=== PATIENT | female | born 1945 | race Caucasian/White ===

== ENCOUNTER 2020-06-21 06:43 | Observation (INO) ==
--- NOTE | 2020-05-21 16:23 | PAT Medication Instructions ---
Medication Instructions Date of Service May 21, 2020 Home Medications aspirin 81 mg tablet,delayed release 81 mg PO QAM atorvastatin 10 mg tablet 10 mg PO QAM carvedilol 3.125 mg tablet 3.125 mg PO BID furosemide 20 mg tablet 20 mg PO QAM meloxicam 7.5 mg PO QAM ASK your surgeon for instructions meloxicam 7.5 mg PO QAM DO NOT take the morning of surgery furosemide 20 mg tablet 20 mg PO QAM Take morning of surgery With a small sip of water, OTHERWISE NOTHING TO EAT OR DRINK AFTER MIDNIGHT: aspirin 81 mg tablet,delayed release 81 mg PO QAM atorvastatin 10 mg tablet 10 mg PO QAM carvedilol 3.125 mg tablet 3.125 mg PO BID Take evening before surgery carvedilol 3.125 mg tablet 3.125 mg PO BID Other Notes If you have any questions please call us at [phone] or [phone] or [phone] or [phone]
--- NOTE | 2020-05-26 12:47 | Anesthesiology Consultation ---
Date of Service May 26, 2020 Assessment & Plan (1) Encounter for pre-operative examination: - Per assessment on 05/26: Travel screen negative. No known COVID-19 positive contacts or current COVID-19 related symptoms. Surgeon arranging preop COVID testing. Awaiting results. - Cardiology note (02/04/20): "The patient is stable from a cardiac perspective to proceed with knee replacement without further cardiac testing, with an estimated low risk of perioperative cardiac complication" Chart Review Chart Review: Acceptable Risk for Surgery and Patient seen in Pre Admission Testing Teaching & Discussion Pre-Anesthesia Teaching/Discussion Notes: Instructed NPO after midnight before surgery,except medications with 15 cc of water. Medication instructions provided according to the PAT guidelines. History Surgery Operation Date: 06/21/20 09:00 Proposed Procedures p Right Total Knee Arthroplasty - Maury Price DO Height/Weight Height: 5 ft 5 in Weight: 92.8 kg Allergies Allergy/AdvReac Type Severity Reaction Status Date / Time meloxicam AdvReac Bruising Verified 05/26/20 13:03 MORPHINE AdvReac Unknown Nausea Uncoded 05/26/20 13:02 Medications Home Medications Medication Instructions Recorded Confirmed Last Taken aspirin 81 mg tablet,delayed 81 mg PO QAM 02/19/19 05/19/20 04/03/19 release atorvastatin 10 mg tablet 10 mg PO QAM 02/19/19 05/19/20 04/03/19 carvedilol 3.125 mg tablet 3.125 mg PO BID 02/19/19 05/19/20 04/03/19 furosemide 20 mg tablet 20 mg PO QAM 02/19/19 05/19/20 04/03/19 meloxicam 7.5 mg PO QAM 05/19/20 05/19/20 Unknown Past Medical History Medical History Anemia chronic, baseline hgb 11 range per [facility] records review Anxiety History of CHF (congestive heart failure) chronic diastolic HF, follows with Dr. Flores HTN (hypertension) Hyperlipemia Obesity Osteoarthritis Prolapsed uterus Takotsubo cardiomyopathy remote hx 2013 Exercise / Class Metabolic Activity III < 4 Walking/Shop/Light housework Past Family History Family History Son Other No family history of adverse response to anesthesia Past Surgical History Surgical History History of cardiac catheterization 2013 ([place]) - no stents History of left hip replacement History of right hip replacement History of umbilical hernia repair Past Anesthesia History No Hx of Anesthesia Complications and No Family Hx of Anesthesia Complications History of PONV No Hx of PONV and No Hx of Motion Sickness Social History Smoking Status: Never smoker Do You Dip or Chew Tobacco: No Hx Alcohol Use: No Hx Substance Use: No substance use type: does not use Review of Systems Patient denies chest pain, shortness of breath, dyspnea on exertion, joint pain, reflux, cough, wheezing, palpitations. Physical Exam Vital Signs VITALS BP 142/79 P 65 TEMP 97.9 SP02 96%RA RESP 16 PHYSICAL Full neck and c-spine range of motion. Full TMJ range of motion. TMD 3 finger breaths Mallampati Score 2 Dentition: upper full denture Lungs: clear throughout to auscultation Cardiac: regular rate and rhythm, no murmurs noted Spine: normal Carotid arteries: negative bruit Extremities: non-pitting edema Testing Laboratory Results 05/26/20 13:11 05/26/20 13:11 PT 10.3 Seconds (9.0-12.0) 05/26/20 13:11 INR 1.0 (0.9-1.1) 05/26/20 13:11 APTT 24.0 Seconds (21.0-31.0) 05/26/20 13:11 Hemoglobin A1c 5.8 % (4.5-5.6) H 05/26/20 13:11 Urine Color Yellow 05/26/20 Unknown Urine Appearance Cloudy (Clear) A 05/26/20 Unknown Urine pH 5.0 (4.5-7.5) 05/26/20 Unknown Ur Specific [place] 1.016 (1.000-1.030) 05/26/20 Unknown Urine Protein Negative (Negative) 05/26/20 Unknown Urine Glucose (UA) Negative (Negative) 05/26/20 Unknown Urine Ketones Negative (Negative) 05/26/20 Unknown Urine Nitrite Negative (Negative) 05/26/20 Unknown Ur Leukocyte Esterase 2+ (Negative) H 05/26/20 Unknown Blood Type A Positive 05/26/20 13:11 Antibody Screen NEGATIVE 05/26/20 13:11 Electrocardiogram Date: 01/13/20 NSR at 60bpm. NS TWA. Chest X-Ray Date: 05/26/20 FINDINGS: Cardiac silhouette remains mildly enlarged. No pleural effusions. No pneumothorax. A few linear scarlike density seen within the left lung apex and lung bases. Otherwise, no focal lung consolidations to suggest pneumonia. No ev idence for pulmonary edema. IMPRESSION: Stable mild cardiomegaly. Otherwise, no acute process within the chest. Echocardiogram Date: 01/22/20 EF 55 to 59%. No regional wall motion abnormality. Grade 1 diastolic dysfunction. No significant valvular disease. Cardiac Catheterization Date: 08/02/12 The patient has widely patent and normal coronary anatomy.
[2020-05-26 13:34] LABS: Basophils # (auto) 0.02 K/uL (0-0.2); Basophils % (auto) 0.3 %; Eosinophils # (auto) 0.11 K/uL (0-0.5); Eosinophils % (auto) 1.8 %; Hematocrit (blood only) 34.5 % (37-47); Hemoglobin 11.1 g/dL (12.0-16.0); Immature Granulocytes # (auto) 0.01 K/uL (0.00-0.02); Immature Granulocytes % (auto) 0.2 %; Lymphocytes % (auto) 29.5 %; Mean Corpuscular Hemoglobin 25.9 pg (25-34); Mean Corpuscular Hgb Conc 32.2 g/dL (32-36); Mean Corpuscular Volume 80.6 fL (80-100); Mean Platelet Volume 8.8 fL (7.4-10.4); Monocytes % (auto) 6.6 %; Neutrophils # (auto) 3.76 K/uL (1.4-6.5); Neutrophils % (auto) 61.6 %; Platelet Count 270 K/uL (130-400); RDW Coefficient of Variation 14.4 % (11.5-14.5); RDW Standard Deviation 41.8 fL (36.4-46.3); Red Blood Count 4.28 M/uL (4.2-5.4)
--- NOTE | 2020-05-26 13:50 | XRay Report ---
XR chest Pre-admission PA/Lat HISTORY: Preop. COMPARISON: Chest 06/17/2012. FINDINGS: Cardiac silhouette remains mildly enlarged. No pleural effusions. No pneumothorax. A few li near scarlike density seen within the left lung apex and lung bases. Otherwise, no focal lung consoli dations to suggest pneumonia. No evidence for pulmonary edema. IMPRESSION: Stable mild cardiomegaly. Otherwise, no acute process within the chest. ACT 112: Negative or not required by law. Electronically signed by: Trip Tafoya M.D. 05/26/2020 1:49 PM
[2020-05-26 13:55] LABS: Partial Thromboplastin Ratio 0.9; Prothrombin Time 10.3 Seconds (9.0-12.0)
[2020-05-26 13:58] LABS: Albumin Level 3.5 gm/dl (3.4-5.0); BUN Creatinine Ratio 27.6 (10-20); Calcium 9.2 mg/dl (8.5-10.1); Est GFR (African American) 100.6; Est GFR (Non-African American) 86.8; Potassium 3.5 mmol/L (3.5-5.1)
[2020-05-26 14:13] LABS: Estimated Average Glucose 120 mg/dl; Hemoglobin A1C 5.8 % (4.5-5.6)
[2020-05-26 14:59] LABS: Appearance Urine Cloudy (Clear); Bilirubin Urine Negative (Negative); Blood Urine Negative (Negative); Color Urine Yellow; Glucose Urine UA Negative (Negative); Ketones Urine Negative (Negative); Leukocyte Esterase Urine 2+ (Negative); Nitrite Urine Negative (Negative); Protein Urine Negative (Negative); Specific Gravity Urine 1.016 (1.000-1.030); Urobilinogen Urine Negative (Negative)
[2020-05-26 15:14] LABS: Epithelial Cell Urine >30 /lpf (0-5); RBC Urine 0-4 /hpf (0-4)
[2020-05-26 15:23] LABS: Bacteria Urine 1+ (Negative)
--- NOTE | 2020-06-20 09:07 | History & Physical Report ---
Date of Service June 21, 2020 Assessment & Plan (1) Degenerative joint disease of knee, right: I have indicated the patient for right total knee replacement. The risks, benefits and complications of surgery were explained to the patient which include but not limited to infection, acute blood loss, DVT/PE, injury to nerves, vessels, bone, soft tissue, arthrofibrosis, chronic pain, failure of the prosthesis, knee dislocation, leg length discrepancy, need for additional surgery, cardiac and pulmonary events and . The patient wished to proceed with surgery and informed consent was obtained at this time. We will plan for 81mg ASA BID post-operatively for DVT prophylaxis. Upon discharge the patient will be discharged home with home health services. Appropriate clearances by PCP and cardiology were obtained. History of Present Illness Chief Complaint: Right knee pain/DJD Primary Care Provider: Jameson Mike MD The patient is a 75 year old female who presents with complaints of severe right knee pain and DJD. The patient has failed outpatient conservative treatments to this point which included NSAIDs, IA corticosteroid injection and a home exercise/walking program. The patient's pain and limited function have progressed to the point where they severely hinder their activities of daily living and they no longer tolerate exercise programs. They are requesting to proceed with total knee replacement surgery. Allergies Allergy/AdvReac Type Severity Reaction Status Date / Time meloxicam AdvReac Intermediate Bruising Verified 06/21/20 07:17 morphine AdvReac Nausea Verified 06/21/20 08:52 Home Medications Medication Instructions Recorded Confirmed Type aspirin 81 mg tablet,delayed 81 mg PO QAM 02/19/19 06/21/20 History release atorvastatin 10 mg tablet 10 mg PO QAM 02/19/19 06/21/20 History carvedilol 3.125 mg tablet 3.125 mg PO BID 02/19/19 06/21/20 History furosemide 20 mg tablet 20 mg PO QAM 02/19/19 06/21/20 History meloxicam 7.5 mg PO QAM 05/19/20 06/21/20 History Past Med/Surg History Medical History Anemia chronic, baseline hgb 11 range per [facility] records review Anxiety History of CHF (congestive heart failure) chronic diastolic HF, follows with Dr. Flores HTN (hypertension) Hyperlipemia Obesity Osteoarthritis Prolapsed uterus Takotsubo cardiomyopathy remote hx 2014 Surgical History History of cardiac catheterization 2012 ([place]) - no stents History of left hip replacement History of right hip replacement History of umbilical hernia repair Family History Son Other No family history of adverse response to anesthesia Social History Smoking Status: Never smoker Second Hand Exposure: No; Do You Dip or Chew Tobacco: No; Hx Alcohol Use: No Hx Substance Use: No Preferred Language: Lithuanian Communication Ability: Effective Cattle Killer Required: No Beliefs That Will Affect Care: None Current Living Situation: Spouse Feels Safe at Home: Yes Safety Concerns: Feels Safe At This Time Assistive Devices: Cane, Denture - Upper and Glasses Review of Systems Review of Systems: All systems reviewed & are unremarkable except as noted in HPI & below Constitutional: as per Subjective / HPI Physical Exam Physical Exam: RLE NVSI +EHL/FHL/TA/GS SILT grossly, +2 DP pulse, compartments soft NT, limited painful ROM of the knee, 5-120 degrees of flexion. Constitutional: WD/WN, vitals as above Eyes: PERRL, conjunctivae normal, anicteric sclerae ENMT: external ear and nose normal, oropharynx normal Neck: trachea midline, no thyromegaly Respiratory: normal respiratory effort, lungs clear to auscultation Cardiovascular: RRR, no murmur, no edema Gastrointestinal (Abdomen): normal bowel sounds, soft, nontender, no hepatosplenomegaly Musculoskeletal: no cyanosis or clubbing, extremities motor strength 5/5 Skin: no rashes, warm and dry Neurologic: patellar DTR's 2+ bilat, sensation intact Psychiatric: A+Ox3, euthymic affect Lymphatic: no cervical or axillary lymphadenopathy Results & Data Results & Data ([facility]) Diagnostic Findings Multiple views of the knee demonstrates severe tricompartmental DJD with complete loss of the medial and PF joint space. +osteophytes, +sclerosis, +subchondral cysts. Pre Admission Testing Addendum Laboratory Results 05/26/20 13:11 05/26/20 13:11 PT 10.3 Seconds (9.0-12.0) 05/26/20 13:11 INR 1.0 (0.9-1.1) 05/26/20 13:11 APTT 24.0 Seconds (21.0-31.0) 05/26/20 13:11 Hemoglobin A1c 5.8 % (4.5-5.6) H 05/26/20 13:11 Urine Color Yellow 05/26/20 Unknown Urine Appearance Cloudy (Clear) A 05/26/20 Unknown Urine pH 5.0 (4.5-7.5) 05/26/20 Unknown Ur Specific [place] 1.016 (1.000-1.030) 05/26/20 Unknown Urine Protein Negative (Negative) 05/26/20 Unknown Urine Glucose (UA) Negative (Negative) 05/26/20 Unknown Urine Ketones Negative (Negative) 05/26/20 Unknown Urine Nitrite Negative (Negative) 05/26/20 Unknown Ur Leukocyte Esterase 2+ (Negative) H 05/26/20 Unknown Urine RBC 0-4 /hpf (0-4) 05/26/20 Unknown Urine WBC 10-30 /hpf (0-5) H 05/26/20 Unknown Ur Epithelial Cells >30 /lpf (0-5) H 05/26/20 Unknown Blood Type A Positive 05/26/20 13:11 Antibody Screen NEGATIVE 05/26/20 13:11 05/26/20 Unknown Urine Culture - Final Urine,Clean Catch More than three types of organisms present, all moderate counts mixed probable skin minh. No further identifications or sensitivities to follow.
[~2020-06-21 06:43] MED LIST: ACETAMINOPHEN 500 MG TAB PO SCH; CeleBREX 200 MG CAP PO SCH; FAMOTIDINE 20 MG TAB PO SCH; GABAPENTIN 300 MG CAP PO SCH; LR 500ML BOLUS, THEN 15ML/HR IV SCH; METOCLOPRAMIDE HCL 10 MG TABLET PO SCH; ROPIVACAINE 0.5% HCL/PF 150 MG, BUPIVACAINE 0.75% MPF 20 ML, EPINEPHrine 30MG/30ML (OR ... INSTIL SCH; TRANEXAMIC ACID 1,000 MG **IV Intra-op IV SCH; TRANEXAMIC ACID 1,000 MG **IV Pre-op IV SCH; ceFAZolin 2000MG 2,000 MG/15 ML SYR IV SCH; dexAMETHasone 4 MG TAB PO SCH
[2020-06-21] MEDS ORDERED: BUPIVACAINE 0.25% 30 ML VIAL ONE (07:34)
[2020-06-21] MEDS ORDERED: BUPIVACAINE 0.5 % 5 MG/1 ML PF 10ML VIAL ONE (07:35)
[2020-06-21] MEDS ORDERED: MIDAZOLAM HCL 1 MG/ML 2ML VIAL ONE (07:57)
[2020-06-21] MEDS ORDERED: PROPOFOL IV EMULSION 10 MG/ML 20 ML VIAL IV ONE ×2 (07:57→10:08)
[2020-06-21] MEDS ORDERED: ONDANSETRON INJ 2 MG/ML 2 ML VIAL IV PRN ×2 (08:48→13:10)
[2020-06-21] MEDS ORDERED: ATROPINE SULFATE 0.1 MG/ML 10ML SYR IV PRN (08:48)
[2020-06-21] MEDS ORDERED: ePHEDrine sulfate 50 MG/ML AMP IV PRN (08:48)
[2020-06-21] MEDS ORDERED: fentaNYL citrate 100 MCG/2 ML VIAL IV PRN (08:48)
--- NOTE | 2020-06-21 09:16 | History & Physical Bridge Note ---
Date of Service June 21, 2020 History & Physical Bridge Note I have examined the patient, reviewed the History & Physical and in the interval since the performance of the History & Physical I have noted the following changes of clinical significance: no changes noted
[2020-06-21] MEDS ORDERED: ORTHO JOINT ANESTHETIC ONE (09:30)
[2020-06-21] MEDS ORDERED: BACITRACIN INJ 50,000 UNIT VIAL ONE (09:30)
--- NOTE | 2020-06-21 11:16 | Post Operative Brief Note ---
Immediate Post Op Note v1 Date of Surgery June 21, 2020 Pre & Post Diagnosis Operation Date: 06/21/20 09:20 Pre-Op Diagnosis: Right Knee Degenerative Joint Disease Post-Op Diagnosis: Right Knee Degenerative Joint Disease I identified the patient and participated in the time-out.: Yes Procedure Operation Date: 06/21/20 09:20 Actual Procedures p Right Total Knee Arthroplasty(Right) - Maury Price DO Surgeon Maury Price DO Disc Jockey Tunde Romero Estimated Blood Loss 85 Findings Consistent with Post-Op Diagnosis Fluids See anesthesia report Specimens Proximal tibia and distal femur bone fragment Anesthesia Type Spinal MAC Complications none Overlapping Procedure I was present for: the critical portions of procedure. I was immediately available: during the entire case. Back up surgeon: was not required during procedure.
--- NOTE | 2020-06-21 11:18 | Operative Report ---
Post Operative Report Pre & Post Diagnosis Operation Date: 06/21/20 09:20 Pre-Op Diagnosis: Right Knee Degenerative Joint Disease Post-Op Diagnosis: Right Knee Degenerative Joint Disease I identified the patient and participated in the time-out.: Yes Procedure Operation Date: 06/21/20 09:20 Actual Procedures p Right Total Knee Arthroplasty(Right) - Maury Price DO Surgeon Maury Price, Res Counselor Tunde Romero Estimated Blood Loss 85 Findings Consistent with Post-Op Diagnosis Fluids See anesthesia report Specimens Proximal tibia and distal femur bone fragments Anesthesia Type Spinal MAC Complications none Disposition Disposition: Recovery Room Indications The patient is a 72-year-old female presents with long history of severe right knee tricompartmental DJD and failed outpatient conservative treatments including NSAIDs, bracing, injections and home walking/exercise program. The patient's symptoms have progressed to the point where it has been difficult to perform normal activities of daily living. I have indicated the patient for a right total knee arthroplasty, the risks and benefits and complications of the procedure include but are not limited to infection bleeding damage to bone, nerves, vessels, surrounding soft tissue, blood clots, loss of function, leg length discrepancy, dislocation, failure of the components, need for additional surgery and . The patient wished to proceed with surgery at this time and informed consent was obtained. Appropriate clearances were obtained. Description of Procedure COMPONENTS USED: Pedrito persona knee system: Femur size 7 standard, Tibia size E with 30 mm stem extension, Tibial articulating surface 10 CPS, Patella 32 mm Following induction of spinal anesthesia, a tourniquet was applied to the proximal aspect of the thigh and the patient's right leg was prepped and draped in the usual sterile manner. A timeout was performed, patient identified and site carroll confirmed. Appropriate pre-operative IV antibiotics were given. The limb was exsanguinated with an Esmarch bandage and tourniquet was inflated to 300 mmHg. A longitudinal midline incision was made over the anterior knee. Subcutaneous tissue was sharply dissected down to fascia. Electrocautery was used for hemostasis. Next a parapatellar arthrotomy was performed. Patella was everted and the knee was flexed. A Harvey retractor was used to expose the synovium above on the anterior aspect of the femur and removed down to bone. Next, the anterior fat pad was removed to aid in visualization. The medial face of the tibia was cleared of soft tissue first with a Bovie and a workman elevator. This tissue was retracted posteriorly using a blunt Hohmann. Next, the extra-medullary tibial cutting guide was placed to the anterior aspect of the tibia. The tibia resection level was set taking 2mm from the defective tibial condyle. Resection depth was once again confirmed with gonzález wing. The medial and lateral collateral ligament was protected with two Hohmann retractors. The tibia guide was removed and proximal tibial bone fragment removed utilizing straight osteotome, electrocautery and Rafael. Next, the distal femur intramedullary canal was accessed utilizing the step drill. The intramedullary distal femur cutting guide was placed into the canal and pinned into place. The distal femur was cut on the 5 degree setting. Next the cutting guide was removed and the femur was sized. Care was taken to ensure appropriate marketing development manager all rotation and 3 degree holes were drilled. A size 7 4-in-1 cutting block was placed on the distal end of the femur and secured into place with two short headed screws. Two bent Hohmann retractors were alana loyd to protect the medial and lateral collateral ligaments. The oscillating saw was used to cut anterior, posterior, anterior chamfer and posterior chamfer. The four and one cutting block was removed and bone fragments excised. Laminar waste collector was placed laterally and the ACL and PCL were removed followed by the medial meniscus and posterior medial osteophytes. Aquamantys was utilized for any posterior medial bleeders and Orthomix injected into the posterior medial capsule. A laminar waste collector was then placed in the medial compartment and the lateral meniscus and posterior osteophytes were removed. Aquamantys was utilized for any posterior lateral bleeders and Orthomix injected into the posterior lateral capsule. Next, drop leo and spacer block were placed with the leg in flexion and extension to assess alignment and flexion/extension gaps. Next, the proximal tibia was assessed and two bent Hohmans were placed medial and lateral to aid in visualization. The appropriate tibia size and rotation was selected and a size E tibial plate was pinned into place with appropriate rotation. Preparation of the tibia was completed utilizing the matching tibial drill and broach. I then turned my attention back to the distal femur in a trial femoral component was impacted into place. Appropriate femoral width was assessed and selected. Next the femur PS box cut guide was placed and cut made with the reciprocal saw and the PS box provisional placed. A trial size 10 PS tibia articular tray was placed and varus-valgus balance assessed in 0 degrees of extension and 30, 60 and 90 degrees of flexion. A final tibial articular surface size 10 CPS was chosen. Assess was gained to the patella and caliper utilized to measure width. The patella reamer was utilized and remaining bone removed with oscillating saw. A size 32 mm patella button was selected and the patella pegs drilled. Trial patella button was placed and tracking was assessed. The knee was found to be well balanced, well aligned with excellent patella tracking. The trials were removed and final components were obtained and assembled. The knee was irrigated copiously with sterile saline solution mixed with bacitracin. Access to the proximal tibia was once again obtained utilizing to the Hohmans and the proximal tibia and distal femur were dried with lap sponges. The final components were cemented into place and all excess cement was removed. A trial tibial articular surface was placed while cemented hardened. Knee stability was once again assessed and the final component inserted. A Betadine soak was performed. After 3 minutes, the knee was once more irrigated with copious sterile saline solution with bacitracin. The knee was injected with the remaining Orthomix which includes a combination of Ropivicaine 0.5% 150mg, Bupivicaine 0.5%/Epinephrine 1:200,000 30ml, Toradol 30mg, Dexamethasone 4mg, Ketamine 10mg, Clonidine 100mcg and NSS 30ml solution. The capsulotomy was cl osed with #1 Vicryl followed by subcutaneous closure with 2-0 Vicryl suture and skin was closed with kamla. A sterile dry dressing was applied which included Silverlon, web roll and Edilberto wrap. Tourniquet was deflated at 86 minutes. The patient tolerated the procedure well and was taken to the PACU in stable condition. Due to the complex nature of the procedure, the entire surgery was performed with the operational assistance of Tunde Romero PA-C. The bacteriology research assistant, under direct supervision, was involved in the actual performance of all aspects of the surgical procedure including patient positioning, hemostasis, tissue retraction, instrument management and wound closure. I attest to the content of the Intraoperative Record and any orders documented therein. Any exceptions are noted below.
--- NOTE | 2020-06-21 12:16 | XRay Report ---
XR knee RT 1 or 2V routine HISTORY: 75 years-old Female Surgical Post Op right knee total joint arthroplasty COMPARISON: Right knee radiograph 04/03/2019 TECHNIQUE: 2 views of the right knee FINDINGS: Right knee total joint arthroplasty with patellar resurfacing. Anterior midline skin kamla are note d along with expected postsurgical soft tissue swelling and deep tissue air. No expected opaque forei gn body or acute fracture. No malalignment. IMPRESSION: Right knee total joint arthroplasty with expected postoperative changes. ACT 112: Negative or not required by law. The above report was generated using voice recognition software. It may contain grammatical, syntax o r spelling errors. Electronically signed by: Francisco Thompson M.D. 06/21/2020 12:15 PM
[2020-06-21] MEDS ORDERED: oxyCODONE HCL IR 5 MG TAB (IMMEDIATE RELEASE) PO PRN (13:10)
[2020-06-21] MEDS ORDERED: bisacodyL 10 MG SUPP PR PRN (13:10)
[2020-06-21] MEDS ORDERED: diphenhydrAMINE Capsule 25 MG CAP PO PRN (13:10)
[2020-06-21] MEDS ORDERED: METOCLOPRAMIDE HCL INJ 5 MG/ML 2 ML VIAL IV PRN (13:10)
[2020-06-21] MEDS ORDERED: MAGNESIUM HYDROXIDE SUSP 30 ML UDC PO PRN (13:10)
[2020-06-21] MEDS ORDERED: NALOXONE HCL 0.4 MG/1 ML VIAL/CARP IV PRN (13:10)
[2020-06-21] MEDS ORDERED: HYDROmorphone INJ 0.5 MG/0.5 ML SYR IV PRN (13:10)
[2020-06-21] MEDS: SODIUM CHLORIDE 0.9% 1000ML 1,000 ML IV SCH ×2 (13:45→23:51)
[2020-06-21] MEDS: ACETAMINOPHEN 500 MG TAB PO SCH ×2 (13:48→22:19)
--- NOTE | 2020-06-21 14:34 | Anesthesiology Progress Note ---
Date of Service June 21, 2020 Anesthesia Post Procedure Vital Signs Vital Signs: Temp Pulse Pulse Resp BP BP Pulse Ox 06/21/20 14:07 36.3 C L 60 16 136/84 95 06/21/20 13:25 36.5 C 57 L 16 116/68 97 06/21/20 12:45 56 L 16 114/66 95 06/21/20 12:35 57 L 16 129/66 95 06/21/20 12:25 36.4 C L 56 L 16 119/60 96 06/21/20 12:15 36.4 C L 68 18 132/52 L 94 06/21/20 12:05 65 18 125/69 95 06/21/20 11:55 72 15 111/70 95 06/21/20 11:45 36.4 C L 83 16 120/67 94 06/21/20 07:28 36.7 C 79 20 177/68 H 98 Pain Intensity Right Knee: Pain Intensity: 7 Transfer of Care Handoff Completed per policy Notes Mental Status: alert / awake / arousable and participated in evaluation Patient Amnestic to Procedure: Yes Nausea / Vomiting: adequately controlled Pain: adequately controlled Airway Patency, RR, SpO2: stable & adequate BP & HR: stable & adequate Hydration State: stable & adequate Neuraxial Anesthesia: was administered and sensory block is resolving Anesthetic Complications: no major complications apparent and Pt Satisfied with anesthetic care
[2020-06-21] MEDS: ceFAZolin 2000MG 2,000 MG/15 ML SYR IV SCH (17:15)
--- NOTE | 2020-06-21 19:04 | Orthopedic Progress Note ---
Date of Service June 21, 2020 Assessment & Plan (1) Degenerative joint disease of knee, right: s/p R TKA -ancef x 24 -DVT ppx: SCDs, TEDs, 81mg ASA BID -WBAT LLE -PT/OT -PO XR demonstrates a well aligned well fixed prosthesis without fracture/dislocation -am labs -DC planning Admission and Anticipated Discharge Date Admission Date: June 21, 2020 Subjective Post Operative Progress Note Patient seen sitting up in bed, comfortable, denies complaints, pain well controlled, no acute issues. Review of Systems 2 Review of Systems: All systems reviewed & are unremarkable except as noted in HPI & below Constitutional: as per Subjective / HPI Physical Exam Physical Exam: RLE NVSI +EHL/FHL/TA/GS SILT grossly, +2 DP pulse, compartments soft NT, dressing cdi. Constitutional: WD/WN, vitals as above Results & Data ([facility]) Vital Signs (Past 12 Hours) Vital Signs Temp Pulse Pulse Resp BP BP Pulse Ox 06/21/20 16:00 36.6 C 67 16 113/59 L 97 06/21/20 15:04 36.3 C L 56 L 16 122/78 97 06/21/20 14:07 36.3 C L 60 16 136/84 95 06/21/20 13:25 36.5 C 57 L 16 116/68 97 06/21/20 12:45 56 L 16 114/66 95 06/21/20 12:35 57 L 16 129/66 95 06/21/20 12:25 36.4 C L 56 L 16 119/60 96 06/21/20 12:15 36.4 C L 68 18 132/52 L 94 06/21/20 12:05 65 18 125/69 95 06/21/20 11:55 72 15 111/70 95 06/21/20 11:45 36.4 C L 83 16 120/67 94 06/21/20 07:28 36.7 C 79 20 177/68 H 98
[2020-06-21] MEDS: carvediloL 3.125 MG TAB PO SCH (20:02)
[2020-06-21] MEDS: DOCUSATE SODIUM 100 MG CAP PO SCH (20:02)
[2020-06-21] MEDS ORDERED: SENNA 8.6 MG TAB PO SCH (21:00)
[2020-06-22] MEDS: ceFAZolin 2000MG 2,000 MG/15 ML SYR IV SCH (02:08)
[2020-06-22] MEDS: ACETAMINOPHEN 500 MG TAB PO SCH (05:11)
[2020-06-22 05:57] LABS: Hematocrit (blood only) 32.2 % (37-47); Hemoglobin 10.4 g/dL (12.0-16.0); Mean Corpuscular Hemoglobin 25.5 pg (25-34); Mean Corpuscular Hgb Conc 32.3 g/dL (32-36); Mean Corpuscular Volume 78.9 fL (80-100); Mean Platelet Volume 8.7 fL (7.4-10.4); Platelet Count 232 K/uL (130-400); RDW Coefficient of Variation 13.7 % (11.5-14.5); RDW Standard Deviation 39.3 fL (36.4-46.3); Red Blood Count 4.08 M/uL (4.2-5.4)
[2020-06-22 06:23] LABS: BUN Creatinine Ratio 42.5 (10-20); Calcium 9.5 mg/dl (8.5-10.1); Creatinine Clr Calc Pharmacy 74.5 ml/min; Est GFR (African American) 91.7; Est GFR (Non-African American) 79.1
--- NOTE | 2020-06-22 07:26 | Orthopedic Progress Note ---
Date of Service June 22, 2020 Assessment & Plan (1) Degenerative joint disease of knee, right: s/p R TKA POD#1 -ancef x 24 -DVT ppx: SCDs, TEDs, 81mg ASA BID -WBAT LLE -PT/OT -PO XR demonstrates a well aligned well fixed prosthesis without fracture/dislocation -am labs - as above, hgb 10.4 -DC planning - home with Admission and Anticipated Discharge Date Admission Date: June 21, 2020 Subjective Post Operative Progress Note Patient seen sitting up in bed, comfortable, denies complaints, pain well controlled, no acute issues. Denies F/C/N/V/SOB/CP. Review of Systems Review of Systems: All systems reviewed & are unremarkable except as noted in HPI & below Constitutional: as per Subjective / HPI Physical Exam Physical Exam: RLE NVSI +EHL/FHL/TA/GS SILT grossly, +2 DP pulse, compartments soft NT, dressing cdi. Constitutional: WD/WN, vitals as above Results & Data ([facility]) Vital Signs (Past 12 Hours) Vital Signs Temp Pulse Resp BP Pulse Ox 06/22/20 03:39 36.5 C 57 L 16 143/71 H 96 06/21/20 23:05 36.4 C L 55 L 18 133/81 95 06/21/20 19:55 36.4 C L 60 18 158/86 H 96 Laboratory Results 06/22/20 06/22/20 Range/Units 05:45 05:45 WBC 10.70 (4.8-10.8) K/uL RBC 4.08 L (4.2-5.4) M/uL Hgb 10.4 L (12.0-16.0) g/dL Hct 32.2 L (37-47) % MCV 78.9 L (80-100) fL MCH 25.5 (25-34) pg MCHC 32.3 (32-36) g/dL RDW Std Deviation 39.3 (36.4-46.3) fL RDW Coeff of Jodi 13.7 (11.5-14.5) % Plt Count 232 (130-400) K/uL MPV 8.7 (7.4-10.4) fL Sodium 141 (136-145) mmol/L Potassium 4.0 (3.5-5.1) mmol/L Chloride 110 H (98-107) mmol/L Carbon Dioxide 26 (21-32) mmol/L Anion Gap 5.0 (3-11) BUN 32 H (7-18) mg/dl Creatinine 0.75 (0.6-1.2) mg/dl Est Cr Clr Drug Dosing 74.5 ml/min Est GFR ( Amer) 91.7 Est GFR (Non-Af Amer) 79.1 BUN/Creatinine Ratio 42.5 H (10-20) Glucose 146 H (70-99) mg/dl Calcium 9.5 (8.5-10.1) mg/dl
[2020-06-22] MEDS: DOCUSATE SODIUM 100 MG CAP PO SCH (08:02)
[2020-06-22] MEDS: carvediloL 3.125 MG TAB PO SCH (08:06)
[2020-06-22] MEDS ORDERED: FUROSEMIDE 20 MG TAB PO SCH (09:00)
[2020-06-22] MEDS ORDERED: ATORVASTATIN 10 MG TAB PO SCH (09:00)
[2020-06-22] MEDS ORDERED: MULTIVITAMIN TAB PO SCH (09:00)
[2020-06-22] MEDS ORDERED: ASPIRIN 81 MG ECTAB PO SCH (09:00)
--- NOTE | 2020-06-22 18:14 | Discharge Summary ---
Date of Service June 22, 2020 Admission HPI Per Admitting Provider The patient is a 75 year old female who presents with complaints of severe right knee pain and DJD. The patient has failed outpatient conservative treatments to this point which included NSAIDs, IA corticosteroid injection and a home exercise/walking program. The patient's pain and limited function have progressed to the point where they severely hinder their activities of daily living and they no longer tolerate exercise programs. They are requesting to proceed with total knee replacement surgery. Principal Diagnosis Right total knee replacement -Right knee DJD Discharge Exam RLE NVSI +EHL/FHL/TA/GS SILT grossly, +2 DP pulse, compartments soft NT, dressing cdi. Constitutional WD/WN, vitals as above Discharge Data Allergies Allergy/AdvReac Type Severity Reaction Status Date / Time meloxicam AdvReac Intermediate Bruising Verified 06/21/20 07:17 morphine AdvReac Nausea Verified 06/21/20 08:52 Consultations 06/21/20 13:10 Consult Case Management - Discharge Planning Routine Procedures Performed Operation Date: 06/21/20 09:20 Actual Procedures p Right Total Knee Arthroplasty(Right) - Maury Price DO Ordered Studies 06/21/20 05:00 US - OR guided needle placemen Routine Hospital Course (1) Degenerative joint disease of knee, right: The patient is a 75 -year-old female who presents with long standing history of severe right knee DJD and failed outpatient conservative treatments. The patient's symptoms have progressed to the point where it has been difficult to perform even normal activities of daily living. I indicated the patient for a right total knee arthroplasty, the risks, benefits and complications of the procedure include but not limited to infection, bleeding, damage to bone, nerves, vessels, surrounding soft tissue, may develop blood clots, loss of function, leg length discrepancy, dislocation, failure of the components, loosening of the components, the need for additional surgery and . The patient wished to proceed with surgery at this time and informed consent was obtained. Hospital Course: On 06/21/20 the patient was taken to the operating room, adequate anesthesia administered and underwent a right total knee arthroplasty. The patient tolerated the procedure well and was taken to the PACU in stable condition. Post-operatively the patient was started on a DVT ppx medication and given appropriate IV antibiotics. Consults were placed to physical therapy, occupational therapy and case management. On POD#1, the patient did well overnight and their pain was well controlled. Labs were drawn and the Hgb was 10.4. The patient progressed well with PT. Dressings were changed at this time and the incision was clean, dry and intact. The patients hospital stay was relatively uneventful and they were deemed stable by the orthopedic team and consultants to be discharged home with HH on 06/22/20. Discharge Instructions: Upon discharge the patient may weight bear as tolerates through their operative extremity. They were instructed to keep the incision clean and dry at all times. The patient may shower but should not submerge the incision, avoid bathing, pools and hot tubs. The patient was given a script for pain medication and should take as instructed. The patient was given a script for DVT ppx 81mg ASA BID and should take as directed. The patient was instructed to not drive or travel for long distances until cleared to do so. If the patient develops any symptoms of fevers, chills, nausea, vomiting, increased redness, swelling, pain or drainage from the surgical site, they should notify the office and/or proceed to the nearest emergency room. The patient should follow up in 10-14 days after surgery for their routine post-operative follow-up appointment and should call the office, to confirm the date and time. s/p R TKA POD#1 -ancef x 24 -DVT ppx: SCDs, TEDs, 81mg ASA BID -WBAT LLE -PT/OT -PO XR demonstrates a well aligned well fixed prosthesis without fracture/dislocation -am labs - as above, hgb 10.4 -DC planning - home with Total Time Total Time Spent Total Time Spent (In Minutes): 30 Discharge Plan Discharge Items Patient Disposition: Home - Home Health Services Reason For Visit: Right Knee Degenerative Joint Disease Discharge Diagnosis: Right total knee replacement -Right knee DJD Condition on Discharge: Good Activity: Per Instructions section Lifting: Wait until after follow-up appointment Bathing: Keep incision dry Bathing Comment: No bathing, pools or tubs Sexual Activity: Wait until after follow-up appointment Exercise/Sports: Wait until after follow-up appointment Driving/Machine Use: No driving. Weightbearing: Full weightbearing Non-emergency contact: Primary Care Provider and Surgeon Call non-emergency contact if: you have any medication questions, your symptoms worsen, your pain is not controlled, your pain is worsening, your pain is unusual for you, your pain is concerning for you, you have a fever, your temperature is above 101, your wound has increased redness, your wound has increased drainage and your wound pain has increased Follow-up/Referrals: Jameson Mike MD [Primary Care Provider] - Diet: Regular Addtl Attending Provider Instructions: ACTIVITY RECOMMENDATIONS: SELF CARE INSTRUCTIONS AFTER TOTAL KNEE REPLACEMENT A. You may need to continue a physical therapy program after discharge from the hospital. There are several options available to you. Your doctor will assist you in selecting the best one for you. 1. An out-patient facility 2 to 3 times a week for therapy or home therapy. 2. Continue working on all exercises taught to you in the hospital. Your goals should be to increase bending of your knee to 90 degrees and beyond and to fully straighten your knee. B. You may progress at your own pace from walking with a walker or crutches to a cane; then to no assistive devices. C. Make walking a part of your daily routine. Be up as much as comfortable with rest periods throughout the day. Rest with leg elevation is very important. Use the ice wrap frequently for the first 3-4 weeks. D. There are no restrictions on activities. You may ride in a car, shop, participate in gantry rigger and all social activities. E. Wear the long elastic stockings (VICKI hose) 20 hours a day for 2 weeks after surgery. They can be removed several times a day for laundering and for a bath. F. You may shower, no tub baths until cleared by your doctor. SPECIAL CARE INSTRUCTIONS: VERY IMPORTANT TO READ AND REVIEW A. There are a few signs you need to watch for after you are home. Call [facility] if you notice any of the followin. Increased severe knee pain. Some pain is expected especially when you exercise. 2. Increased swelling in your leg or knee; pain or swelling of the calf muscle in either lower leg. 3. Any fluid drainage from the incision. 4. Shortness of breath or chest pain. B. Please call [facility] at if you have any concerns or questions about your operation or recovery. The doctor or his nurse will return your call promptly. C. You must take antibiotics before dental work, bladder, bowel or other surgery. Your doctor will provide you with a permanent care to carry describing this precaution. IMPORTANT: * REMEMBER TO TAKE ASPIRIN, 81 MG, TWICE DAILY FOR 4 WEEKS UNLESS OTHERWISE DIRECTED. THIS IS YOUR BLOOD THINNER. * HIGH RISK PATIENTS MAY BE PRESCRIBED A STRONGER BLOOD THINNER. THIS WILL BE PROVIDED AT DISCHARGE. * CALL IF INCREASED PAIN, REDNESS, DRAINAGE OR FEVER GREATER THAT 101. * WEAR VICKI HOSE 20 HOURS PER DAY FOR 2 WEEKS. * YOU MAY HAVE A LARGE BAND-AID LIKE DRESSING (SILVERON). THIS WILL REMAIN ON YOUR INCISION FOR 7 DAYS, THEN CAN BE REMOVED. IF INCISION IS LEAKING THROUGH DRESSING, CALL THE OFFICE . FOLLOW UP VISIT: If appointment is not already scheduled: Please call [facility] to make a follow-up appointment for 2 weeks after your surgery at . Pending Studies at Discharge: No Stand-Alone Forms: My CallApp, Smoking Cessation Medications and DC Order Prescriptions: New acetaminophen 500 mg Tablet 1,000 mg PO Q8 PRN (Reason: fever or pain) Qty: 90 RF: 0 aspirin 81 mg Tablet,Delayed Release (Dr/Ec) 81 mg PO BID Qty: 56 RF: 0 oxycodone 5 mg Tablet 5 mg PO Q6H MDD 4 PRN (Reason: pain) Qty: 30 RF: 0 sennosides [Senokot] 8.6 mg Tablet 17.2 mg PO HS PRN (Reason: constipation) Qty: 28 RF: 0 Continued atorvastatin 10 mg tablet 10 mg PO QAM RF: 0 carvedilol 3.125 mg tablet 3.125 mg PO BID RF: 0 furosemide 20 mg tablet 20 mg PO QAM RF: 0 Discontinued aspirin [Aspirin Low Dose] 81 mg tablet,delayed release (DR/EC) 81 mg PO QAM RF: 0 meloxicam 7.5 mg Tablet 7.5 mg PO QAM RF: 0 Discharge Orders: Discharge Order (Routine); Ordered 06/22/20 Ordered By: Maury Crane/Other Patient Handouts: DVT Post Op Prevention, Preventing Falls in the Home Admission Data Admit Date/Time: 06/21/20 11:48 Attending Provider: Maury Price Admit Provider: Maury Price Primary Care Provider: Jameson Mike Other Providers: [facility] Other Interventions: Discharge Summary Assessment (RN) Last Done: 06/22/20 12:10
== END 2020-06-22 15:35 | disposition home health service (06) ==
LOC: ASU 06:43 → 3E 06:43